=== PATIENT | female | born 1980 | race Caucasian/White ===

== ENCOUNTER → 2017-03-13 | Outpatient (CLI) | payer OTHER ==
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
== END | disposition home or self-care (01) ==
LOC: KCIC 14:53
PROVIDERS: ATTEND Physician Assistant
DX: R07.89 Other chest pain (principal); M25.551 Pain in right hip; S79.911D Unspecified injury of right hip, subsequent encounter; X58.XXXD Exposure to other specified factors, subsequent encounter
CPT/HCPCS: 71110; 71120; 73502

== ENCOUNTER → 2017-03-25 | Outpatient (CLI) | payer OTHER ==
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
== END | disposition home or self-care (01) ==
LOC: KCIC CT 08:42
PROVIDERS: ATTEND Family Medicine
DX: S22.21XA Fracture of manubrium, initial encounter for closed fracture (principal); E04.8 Other specified nontoxic goiter; X58.XXXA Exposure to other specified factors, initial encounter; Y93.89 Activity, other specified; Y92.89 Other specified places as the place of occurrence of the external cause; Y99.8 Other external cause status
CPT/HCPCS: 71250

== ENCOUNTER → 2017-03-27 | Outpatient (CLI) | payer OTHER ==
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
== END | disposition home or self-care (01) ==
LOC: KCIC 09:35
PROVIDERS: ATTEND Physician Assistant
DX: M54.9 Dorsalgia, unspecified (principal); V89.2XXD Person injured in unspecified motor-vehicle accident, traffic, subsequent encounter
CPT/HCPCS: 72072

== ENCOUNTER 2019-01-31 11:49 | Emergency (ER) | payer OTHER ==
[~2019-01-31] VITALS: Ht 182.9 cm; Wt 121.6 kg
[2019-01-31 11:58] VITALS: BP 153/87
--- NOTE | 2019-01-31 12:18 | PHYS DOC ---
Past Medical History Past Medical History: Hypertension, Other Additional Past Medical Histor: PCOS,MS Past Surgical History: Other Additional Past Surgical Histo: D&C Alcohol Use: None Drug Use: None Adult General Chief Complaint Chief Complaint: OTHER COMPLAINTS HPI HPI Patient is a 38 year old female with history of hypertension, MS, who presents to the ED today complaining of uvular swelling. Patient states the only new product she started using today is a new lip gloss. Denies any difficulty breathing but states she feels her uvula is chocking her. Denies any throat pain. She states she is on a double blind study for MS and is not allowed to get steroids. Review of Systems Review of Systems Constitutional: Denies fever or chills [] Eyes: Denies change in visual acuity, redness, or eye pain [] HENT:Reports swollen uvular. Denies nasal congestion or sore throat [] Respiratory: Denies cough or shortness of breath [] Cardiovascular: No additional information not addressed in HPI [] GI: Denies abdominal pain, nausea, vomiting, bloody stools or diarrhea [] : Denies dysuria or hematuria [] Musculoskeletal: Denies back pain or joint pain [] Integument: Denies rash or skin lesions [] Neurologic: Denies headache, focal weakness or sensory changes [] All other systems were reviewed and found to be within normal limits, except as documented in this note. Current Medications Current Medications Current Medications Medications (Trade) Dose Ordered Sig/Taqueria Start Time Stop Time Status Last Admin Dose Admin Diphenhydramine HCl (Benadryl) 25 mg 1X ONCE 01/31/19 13:00 01/31/19 13:01 DC 01/31/19 12:54 25 MG Epinephrine HCl (Adrenalin) 0.3 mg 1X ONCE 01/31/19 13:00 01/31/19 13:01 DC 01/31/19 12:56 0.3 MG Famotidine (Pepcid) 20 mg 1X ONCE 01/31/19 13:00 01/31/19 13:01 DC 01/31/19 12:54 20 MG Allergies Allergies Allergies Coded Allergies Type Severity Reaction Last Updated Verified sulfamethoxazole Allergy Severe HIVES 01/31/19 Yes trimethoprim Allergy Severe HIVES 01/31/19 Yes Penicillins Allergy Intermediate Rash 07/24/15 Yes amoxicillin Allergy Intermediate Rash 9/28/15 Yes doxycycline Allergy Intermediate Rash 07/24/15 Yes erythromycin base Allergy Intermediate Rash 07/24/15 Yes Physical Exam Physical Exam Constitutional: Well developed, well nourished, no acute distress, non-toxic appearance. [] HENT: Normocephalic, atraumatic, bilateral external ears normal, oropharynx moist, no oral exudates, nose normal. [] Uvula is midline with mild swelling and slight erythema. The airway remains open. Eyes: PERRLA, EOMI, conjunctiva normal, no discharge. [] Neck: Normal range of motion, no tenderness, supple, no stridor. [] Cardiovascular:Heart rate regular rhythm, no murmur [] Lungs & Thorax: Bilateral breath sounds clear to auscultation [] Abdomen: Bowel sounds normal, soft, no tenderness, no masses, no pulsatile masses. [] Skin: Warm, dry, no erythema, no rash. [] Back: No tenderness, no CVA tenderness. [] Extremities: No tenderness, no cyanosis, no clubbing, ROM intact, no edema. [] Neurologic: Alert and oriented X 3, normal motor function, normal sensory function, no focal deficits noted. [] Psychologic: Affect normal, judgement normal, mood normal. [] Current Patient Data Vital Signs Vital Signs Date Time Temp Pulse Resp B/P (MAP) Pulse Ox O2 Delivery O2 Flow Rate FiO2 01/31/19 11:58 98.0 102 16 153/87 (109) 96 Room Air 98.0 EKG EKG [] Radiology/Procedures Radiology/Procedures [] Course & Med Decision Making Course & Med Decision Making Pertinent Labs and Imaging studies reviewed. (See chart for details) This is a 38-year-old female patient presenting to the ED today complaining of uvula swelling since the morning. She tried a new lip close this morning. She was also in a double blind study for MS and is not allowed to have any steroids. I attempted to contact the doctor in charge of this study with no success. Patient was given epinephrine, Pepcid and Benadryl. Patient was given 1 hour when the ear. Her uvular swelling has gone down tremendously. Patient herself was able to get in touch with her sales promotion coordinator, who informed her she can take steroids we send her home with prednisone for 5 more days, Pepcid and famotidine. F/u with PCP in the course of this week. Dragon Disclaimer Dragon Disclaimer This electronic medical record was generated, in whole or in part, using a voice recognition dictation system. Departure Departure Impression: Primary Impression: Allergic reaction Disposition: 01 HOME, SELF-CARE Condition: STABLE Referrals: CONSUELO ARROYO MD (PCP) follow up in the course of this week Patient Instructions: Allergies, Generic Additional Instructions: You were seen in the ED for what appears to be an allergic reaction. Please do not use the lip gloss you used this morning. Take the prescribed prednisone for the next 5 days. Take Benadryl until symptoms are gone, take famotidine/Pepcid until symptoms are gone. Scripts Prednisone (PREDNISONE) 50 Mg Tablet 1 TAB PO DAILY, #5 TAB Prov: TIM HOWARD APRN 01/31/19 Problem Qualifiers Primary Impression: Allergic reaction Encounter type: initial encounter Qualified Codes: T78.40XA - Allergy, unspecified, initial encounter ITM HOWARD APRN Jan 31, 2019 12:18
[2019-01-31] MEDS ORDERED: EPINEPHrine 1 MG/ML VIAL SQ ONE (13:00)
[2019-01-31] MEDS ORDERED: FAMOTIDINE 20 MG TABLET. PO ONE (13:00)
[2019-01-31] MEDS ORDERED: diphenhydrAMINE HCL 25 MG CAPSULE PO ONE (13:00)
[2019-01-31] MEDS ORDERED: PRED50TA PO (14:23)
== END 2019-01-31 14:28 | disposition home or self-care (01) ==
LOC: ER 11:49
DX: T78.40XA Allergy, unspecified, initial encounter (principal); I10 Essential (primary) hypertension; Z88.1 Allergy status to other antibiotic agents; Z88.0 Allergy status to penicillin; Z88.2 Allergy status to sulfonamides; Z88.5 Allergy status to narcotic agent
CPT/HCPCS: 87070; 87880; 96372; 99283; J0171; Q0163

== ENCOUNTER 2020-11-22 12:43 | Emergency (ER) | payer OTHER ==
[~2020-11-22] VITALS: Ht 180.3 cm; Wt 117.1 kg
[~2020-11-22 12:43] MED LIST: PRED50TA PO
--- NOTE | 2020-11-22 12:58 | PHYS DOC ---
Past Medical History Past Medical History: Hypertension Additional Past Medical Histor: MULTIPLE SCLEROSIS Past Surgical History: Other Additional Past Surgical Histo: D&C Smoking Status: Never Smoker Alcohol Use: None Drug Use: None General Adult EDM: Chief Complaint: ABDOMINAL PAIN HPI: HPI: This is a pleasant 40-year-old female presenting to the emergency department today with right-sided abdominal pain. Her pain is in the upper and lower quadrant. It started about 3 days ago. It radiates from the back around to the front of the abdomen. It is not associate with nausea or vomiting. She denies fevers or chills. She denies chest pain shortness of breath. It is a sharp pain. No alleviating or exacerbating factors. Review of systems is negative for vomiting fevers chills rash. Negative for chest pain shortness of breath. All other review of systems negative. ED course: 40-year-old female presenting with right-sided abdominal pain. Temperature afebrile. Pulse 105. Blood pressure initially on arrival was philly vated. Saturating well on room air. CBC unremarkable. Chemistry panel unremarkable. Urine testing suggestive of an infection with hematuria and positive leuk esterase. Negative nitrites. There were some squamous cells. CT abdomen pelvis shows no signs of obstruction or appendicitis. No acute findings on CT. We will give the patient IV Levaquin and discharge the patient home on oral Levaquin. Levaquin was used in this case because of multiple allergies to antibiotics. Heart Score: Risk Factors: Risk Factors: DM, Current or recent (<one month) smoker, HTN, HLP, family history of CAD, obesity. Risk Scores: Score 0 - 3: 2.5% MACE over next 6 weeks - Discharge Home Score 4 - 6: 20.3% MACE over next 6 weeks - Admit for Clinical Observation Score 7 - 10: 72.7% MACE over next 6 weeks - Early Invasive Strategies Allergies: Allergies: Allergies Coded Allergies Type Severity Reaction Last Updated Verified sulfamethoxazole Allergy Severe HIVES 01/31/19 Yes trimethoprim Allergy Severe HIVES 01/31/19 Yes Penicillins Allergy Intermediate Rash 07/24/15 Yes amoxicillin Allergy Intermediate Rash 07/24/15 Yes doxycycline Allergy Intermediate Rash 07/24/15 Yes erythromycin base Allergy Intermediate Rash 07/24/15 Yes Physical Exam: PE: Constitutional: Well developed, well nourished, no acute distress, non-toxic appearance. [] HENT: Normocephalic, atraumatic, bilateral external ears normal, oropharynx moist, no oral exudates, nose normal. [] Eyes: PERRLA, EOMI, conjunctiva normal, no discharge. [] Neck: Normal range of motion, no tenderness, supple, no stridor. [] Cardiovascular:Heart rate regular rhythm, no murmur [] Lungs & Thorax: Bilateral breath sounds clear to auscultation [] Abdomen: Bowel sounds normal, soft, the patient has mild tenderness in the right upper and right lower quadrant., no masses, no pulsatile masses. No rebound tenderness or guarding. Skin: Warm, dry, no erythema, no rash. [] Back: No tenderness, no CVA tenderness. [] Extremities: No tenderness, no cyanosis, no clubbing, ROM intact, no edema. Neurologic: Alert and oriented X 3, normal motor function, normal sensory function, no focal deficits noted. [] Psychologic: Affect normal, judgement normal, mood normal. EKG: EKG: [] Radiology/Procedures: Radiology/Procedures: [] Course & Med Decision Making: Course & Med Decision Making Pertinent Labs and Imaging studies reviewed. (See chart for details) [] Dragon Disclaimer: TrackR Disclaimer: This electronic medical record was generated, in whole or in part, using a voice recognition dictation system. Departure Departure Impression: Primary Impression: Abdominal pain Additional Impression: UTI (urinary tract infection) Disposition: 01 DC HOME SELF CARE/HOMELESS Condition: STABLE Referrals: RANDY REZA MD (PCP) Patient Instructions: Urinary Tract Infection Additional Instructions: EMERGENCY DEPARTMENT GENERAL DISCHARGE INSTRUCTIONS Follow-up with your primary physician in 1 to 2 days. Return to the emergency department if you have any new or concerning findings. Thank you for coming to [facility] Emergency Department (ED) today and trusting us with you care. We trust that you had a positive experience in our Emergency Department. If you wish to speak to the department management, you may call the Director at [phone]. YOUR FOLLOW UP INSTRUCTIONS ARE FOLLOWS: 1. Do you have a private Doctor? If you do not have a private doctor, please ask for a resource list of physicians or clinics that may be able to assist you with follow up care. 2. If a lab test or culture has been done and does not come back immediately, your results will be reviewed and you will be notified if you need a change in treatment. ADDITIONAL INSTRUCTIONS AND INFORMATION: 1. Your care today has been supervised by a physician who is specially trained in emergency care. Many problems require more than one evaluation for a complete diagnosis and treatment. We recommend that you schedule your follow up appointment as recommended to ensure complete treatment of you illness or injury. If you are unable to obtain follow up care and continue to have a problem, or if your condition worsens, we recommend that you return to the ED. 2. We are not able to safely determine your condition over the phone nor are we able to give sound medical advice over the phone. For these safety reasons, if you call for medical advice we will ask you to come to the ED for further evaluation. 3. If you have any questions regarding these discharge instructions please call the ED at [phone]. SAFETY INFORMATION: In the interest of safety, wellness, and injury prevention; we encourage you to wear your sealbelt, if you smoke; quite smoking, and we encourage family to use a protective helmet for bicycling and other sporting events that present an increased risk for head injury. IF YOUR SYMPTOMS WORSEN OR NEW SYMPTOMS DEVELOP, OR YOU HAVE CONCERNS ABOUT YOUR CONDITION; OR IF YOUR CONDITION WORSENS WHILE YOU ARE WAITING FOR YOUR FOLLOW UP APPOINTMENT; EITHER CONTACT YOUR PRIMARY CARE DOCTOR, THE PHYSICIAN WHOSE NAME AND NUMBER YOU WERE GIVEN, OR RETURN TO THE ED IMMEDIATELY. This condition should be evaluated by your primary care physician and any [facility] consulting services for continued management within a few days (1-2) after discharge. Return to the emergency department if you have any new or concerning symptoms including but not limited to fever, chills, nausea, vomiting, intractable pain, any new rashes, chest pain, shortness of breath, uncontrolled bleeding, difficulty breathing, and/or vision loss. Scripts Levofloxacin (LEVOFLOXACIN) 500 Mg Tablet 1 TAB PO DAILY, #10 TAB Prov: DAWNA HEARN MD 11/22/20 DAWNA HEARN MD Nov 22, 2020 12:58
[2020-11-22] MEDS ORDERED: HYDROmorphone 2 MG/ML VIAL IV/SQ PRN (13:00)
[2020-11-22] MEDS ORDERED: IV NORMAL SALINE 1000ML BAG 1,000 ML IV SCH (13:00)
[2020-11-22 13:18] LABS: BILIRUBIN,URINE NEGATIVE (NEG); CLARITY,URINE CLEAR; COLOR,URINE YELLOW; NITRITE,URINE NEGATIVE (NEG); PH,URINE 5.5 (<5.0-8.0); PROTEIN,URINE NEGATIVE (NEG-TRACE)
[2020-11-22] MEDS ORDERED: ONDANSETRON PF 4 MG/2 ML VIAL. IV ONE (13:30)
[2020-11-22 13:36] LABS: BACTERIA,URINE FEW /HPF (0-FEW); WBC,URINE 20-40 /HPF (0-4)
[2020-11-22 13:49] LABS: BASO # 0.1 x10^3/uL (0.0-0.2); BASO % 1 % (0-3); EOS # 0.4 x10^3/uL (0.0-0.7); EOS % 5 % (0-3); HEMATOCRIT 43.3 % (36.0-47.0); HEMOGLOBIN 14.4 g/dL (12.0-15.5); LYMPH # 1.6 x10^3/uL (1.0-4.8); LYMPH % 19 % (24-48); MEAN CORPUSCULAR HEMOGLOBIN 28 pg (25-35); MEAN CORPUSCULAR HGB CONC 33 g/dL (31-37); MEAN CORPUSCULAR VOLUME 83 fL (79-100); MONO # 0.7 x10^3/uL (0.0-1.1); MONO % 9 % (0-9); NEUT # 5.7 x10^3/uL (1.8-7.7); NEUT % 67 % (31-73); PLATELET COUNT 256 x10^3/uL (140-400); RED BLOOD COUNT 5.19 x10^6/uL (3.50-5.40); RED CELL DISTRIBUTION WIDTH 13.7 % (11.5-14.5); WHITE BLOOD COUNT 8.6 x10^3/uL (4.0-11.0)
[2020-11-22 13:55] LABS: CREATININE 0.6 mg/dL (0.6-1.0); GFR 110.7; POTASSIUM 3.7 mmol/L (3.5-5.1)
[2020-11-22 14:00] LABS: ALBUMIN 3.5 g/dL (3.4-5.0); TOTAL BILIRUBIN 0.4 mg/dL (0.2-1.0); TOTAL PROTEIN 6.9 g/dL (6.4-8.2)
[2020-11-22] MEDS ORDERED: IOHEXOL 300 MG/ML 100ML VIAL. IV ONE (14:00)
[2020-11-22] MEDS ORDERED: CONTRAST GIVEN. MC PRN (14:15)
--- NOTE | 2020-11-22 14:41 | RAD ---
INDICATION: Reason: abd pain right side / Spl. Instructions: [id number] 75ML / History: . COMPARISON: March 2019 TECHNIQUE: Axial CT images obtained through the abdomen and pelvis with contrast. One or more of the following individualized dose reduction techniques were utilized for this examinat ion: 1. Automated exposure control; 2. Adjustment of the mA and/or kV according to patient size; 3 . Use of iterative reconstruction technique. FINDINGS: Abdominal aorta is not aneurysmal. There are some scattered plaque. Fat-containing umbilical hernia. No intrahepatic bile duct dilation. Gallbladder is largely contracted. No peripancreatic fluid collection. Spleen unremarkable. No hydronephrosis. Urinary bladder partially distended. Uterus visualized. No periappendiceal inflammatory changes. Degenerative changes of the spine. IMPRESSION: * No evidence of bowel obstruction or appendicitis. * No hydronephrosis. Electronically signed by: Blaine Woodward MD (11/22/2020 2:39 PM) [id number]
[2020-11-22] MEDS ORDERED: LEVO500T8 PO (15:23)
[2020-11-22 15:50] VITALS: BP 147/77
== END 2020-11-22 16:42 | disposition home or self-care (01) ==
LOC: ER 12:43
DX: N39.0 Urinary tract infection, site not specified (principal); I10 Essential (primary) hypertension; Z88.0 Allergy status to penicillin; Z88.1 Allergy status to other antibiotic agents; Z88.2 Allergy status to sulfonamides; Z88.6 Allergy status to analgesic agent
CPT/HCPCS: 36415; 74177; 80053; 81001; 81025; 83690; 85025; 87086; 96361; 96365; 96375; 99285; J1170; J1956; J2405; J7030; Q9967

== ENCOUNTER → 2020-12-11 | Outpatient (CLI) | payer OTHER ==
[2020-11-22 15:50] VITALS: BP 147/77
[~2020-12-11] MED LIST changes: +LEVO500T8 PO
--- NOTE | 2020-12-11 16:14 | RAD ---
EXAM: Renal sonogram. HISTORY: Hematuria. Flank pain. TECHNIQUE: Sonographic imaging of the kidneys and bladder was performed. COMPARISON: CT dated 11/22/2020. FINDINGS: The kidneys are normal in size. No solid or cystic renal lesion is seen. There is no hydron ephrosis. The urinary bladder is unremarkable. IMPRESSION: Sonographically unremarkable kidneys. Electronically signed by: Negar Ross MD (12/11/2020 4:12 PM) [id number]
== END ==
LOC: US 15:34
PROVIDERS: ATTEND Family Medicine
DX: R31.0 Gross hematuria (principal); R10.9 Unspecified abdominal pain
CPT/HCPCS: 76770

== ENCOUNTER → 2021-05-10 | Outpatient (CLI) | payer OTHER ==
--- NOTE | 2021-05-10 13:54 | RAD ---
EXAMINATION: MG DIAGNOSTIC BILAT CLINICAL HISTORY: Bilateral breast tenderness, baseline TECHNIQUE: Digital craniocaudal and mediolateral oblique views of the bilateral breasts obtained with 3-D tomosynthesis. COMPARISON: None BREAST COMPOSITION: The breasts are almost entirely fatty. FINDINGS: No evidence of suspicious mass, calcifications, or areas of architectural distortion. IMPRESSION: No mammographic evidence of malignancy. BI-RADS ASSESSMENT: Category 1: Negative RECOMMENDATION: Recommend clinical management of breast tenderness. Return for routine bilateral screening mammogram in one year. PQRS compliance statement - Patient information was entered into a reminder system with a target due date for the next mammogram. "Our facility is accredited by the [employer] Mammography [employer]." Electronically signed by: Bud Oneill DO (05/10/2021 1:52 PM) [id number]
== END ==
LOC: MAMMO 13:11
PROVIDERS: ATTEND Family Medicine
DX: N64.4 Mastodynia (principal)
CPT/HCPCS: 77066